=== PATIENT | male | born 1990 | race Caucasian/White ===

== ENCOUNTER 2020-01-08 22:55 | Emergency (ER) | payer SELFPAY ==
[~2020-01-08] VITALS: Ht 182.9 cm; Wt 80.3 kg
[2020-01-08 23:01] VITALS: Ht 182.9 cm; Wt 80.3 kg
[2020-01-08 23:33] LABS: BASOPHIL % 0.6 % (0-2); PLATELET COUNT 247 x10^3mcL (130-400); RED CELL DISTRIBUTION WIDTH 13.1 % (11.5-14.5)
[2020-01-08 23:44] LABS: CALCIUM 9.1 mg/dL (8.5-10.1); CARBON DIOXIDE 29.6 mmol/L (21-32); CHLORIDE SERUM 102 mmol/L (98-107); CREATININE SERUM 1.3 mg/dL (0.7-1.3); GFR1 > 60 mL/min; GLUCOSE SERUM 103 mg/dL (74-106); POTASSIUM SERUM 3.6 mmol/L (3.5-5.1); SODIUM SERUM 142 mmol/L (136-145)
[2020-01-08 23:48] LABS: ALBUMIN 4.2 g/dL (3.4-5.0); ALKALINE PHOSPHATASE 89 U/L (46-116); ALT/SGPT 24 U/L (16-63); AST/SGOT 14 U/L (15-37); BILIRUBIN TOTAL 0.6 mg/dL (0.20-1.00); LIPASE 204 IU/L (73-393); TOTAL PROTEIN, SERUM 8.1 g/dL (6.4-8.2)
[2020-01-09 00:49] VITALS: BP 147/88
== END 2020-01-09 00:49 | disposition home or self-care (01) ==
LOC: ED 22:55
PROVIDERS: Emergency Medicine
DX: R10.816 Epigastric abdominal tenderness (principal); R10.811 Right upper quadrant abdominal tenderness; R10.812 Left upper quadrant abdominal tenderness; F12.10 Cannabis abuse, uncomplicated; R91.1 Solitary pulmonary nodule; R11.0 Nausea; R34 Anuria and oliguria
CPT/HCPCS: 36415